=== PATIENT | male | born 2005 | race Caucasian/White ===

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

== ENCOUNTER 2025-03-18 09:48 | Emergency (ER) | payer OTHER, BC, SELFPAY ==
[2025-03-18 09:56] VITALS: BP 136/98; PULSE 83; RESP 16; TEMP 36.9; O2SAT 100
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
== END 2025-03-18 10:40 | disposition home or self-care (01) ==
PROVIDERS: Emergency Provider Nurse Practitioner Family
DX: S40.812A Abrasion of left upper arm, initial encounter (principal); S40.811A Abrasion of right upper arm, initial encounter; S60.511A Abrasion of right hand, initial encounter; S30.811A Abrasion of abdominal wall, initial encounter; S80.211A Abrasion, right knee, initial encounter; S20.412A Abrasion of left back wall of thorax, initial encounter; V28.49XA Other motorcycle driver injured in noncollision transport accident in traffic accident, initial encounter; F17.290 Nicotine dependence, other tobacco product, uncomplicated
CPT/HCPCS: 99213; G0463

== ENCOUNTER 2025-06-03 15:40 | Emergency (ER) | payer OTHER, BC, SELFPAY ==
--- NOTE | ~2025-06-03 | XR_ITS ---
EXAMINATION: XR wrist RT min 3V DATE: 06/03/2025 15:59 INDICATION: Right wrist injury post fall TECHNIQUE: Posteroanterior, ulnar deviation, oblique, and lateral views of the right wrist were obtained. COMPARISON: none FINDINGS: Alignment is normal. No fracture. Joint spaces are normal. Small round ossicle near the tip the ulnar styloid process which could represent an unfused accessory apophyseal center or sequela of old trauma. Soft tissues are unremarkable. IMPRESSION: 1. No acute osseous abnormality. Reviewed, dictated and finalized at location A.
[2025-06-03 15:43] VITALS: BP 143/79; PULSE 56; RESP 20; TEMP 36.8; O2SAT 100
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
--- OUTSIDE RECORDS SUMMARY | 2025-06-03 17:34 | XMS_ITS | Data Portability ---
Author Organization [facility] Address [address] [place] [address] Assessment No assessment recorded. Plan of Treatment Reminders Order Date Submit Date Provider Last Modified By Organization Details Last Modified Time Details Appointments None recorded. Lab SARS CoV 2 RNA (COVID-19), QL, environmental program manager-PCR, respiratory specimen - [place] @ 1pm 2019 [address] [facility] ([facility]), [address] [place], [address], 0 18:26:11 Referral None recorded. Procedures None recorded. Surgeries None recorded. Imaging None recorded. Medication Orders None recorded. Patient TargetsNo targets recorded. Patient Instructions Encounter Date Encounter Id Patient Instructions Last Modified By Organization Details Last Modified Time 04/14/2020 [id number] Reviewed the following recommendations: -Stay home and separate from others as much as possible. -Monitor your symptoms and seek medical attention for trouble breathing, persistent chest pain, confusion, or bluish lips or face. -Wear a mask if you must be around other people. -Wash your hands often for 20 seconds with soap and water and clean high-touch surfaces daily -You may discontinue home isolation if your symptoms are improving, it has been 10 days since symptoms started, and you have been fever free for at least 3 days. [email or web address] Not available 04/14/2020 12:48:32 Reason for Referral None Reported. Results Created Date Observation Date Name Description Value Unit Range Abnormal Flag Note LastModifiedBy Organization Detail LastModifiedTime 04/14/20 20 04/14/2020 SARS CoV 2 RNA (COVI D-19) , QL, environmental program manager-P CR, respi rator y speci men sars - cov - 2 PCR NEGATI VE mL Not Available [facility] (Lab) [address], [place], [address], 04/15/2020 18:26:11 04/14/20 20 04/14/2020 SARS CoV 2 RNA (COVI D-19) , QL, environmental program manager-P CR, respi rator y speci men covidcom1 COMME NTS: This assay is desig quiana to detec t the RdRp and N genes of SARS- CoV-2 using nucle ic acid ampli ficat ion. A negat [place] resul t does not precl ude the possi bilit y of 2019- nCoV infec tion since the adequ acy of sampl e colle ction and/o r low viral burde n may resul t in the prese nce of viral nucle ic acids level s below the rasheeda tical sensi tivit y of this test metho d. Not Available [facility] (Lab) [address], [place], [address], 04/15/2020 18:26:11 04/14/20 20 04/14/2020 SARS CoV 2 RNA (COVI D-19) , QL, environmental program manager-P CR, respi rator y speci men covidcom2 Posit [place] resul ts are indic ative of the prese nce of SARS- CoV-2 RNA and do not rule out bacte rial infec tion or co-in fecti on with other virus es. Not Available [facility] (Lab) [address], [place], [address], 04/15/2020 18:26:11 04/14/20 20 04/14/2020 SARS CoV 2 RNA (COVI D-19) , QL, environmental program manager-P CR, respi rator y speci men covidcom3 Test resul ts shoul d be used along with other clini attila obser vatio ns, patie nt histo ry, epide miolo gical infor matio n and labor atory data in kiera polanco the diagn osis. Not Available [facility] (Lab) [address], [place], [address], 04/15/2020 18:26:11 04/14/20 20 04/14/2020 SARS CoV 2 RNA (COVI D-19) , QL, environmental program manager-P CR, respi rator y speci men covidcom4 This test has recei wei FDA Emerg ency Use Autho rizat ion and has been verif ied by [facility] [employer] . This test is only autho rized for the durat ion of the decla ratio n and the circu mstan danial that exist to justi fy the autho rizat ion of the emerg ency use of in vitro diagn ostic tests for the detec tion of SARS- CoV-2 virus and/o r diagn osis of COVID -19 infec tion under secti on 564 (b) (1) of the Act. 11 U.S.C . 360bb b-3 (b) (1), unles s the autho rizat ion is termi nated or revok ed soone r. Not Available [facility] (Lab) [address] [place], [address], 04/15/2020 18:26:11 04/14/20 20 04/14/2020 SARS CoV 2 RNA (COVI D-19) , QL, environmental program manager-P CR, respi rator y speci men covidcom5 [facility] [employer] is certi fied under CLIA- 88 as quali fied to perfo rm high compl exity testi ng. This testi ng was perfo rmed in the [facility] [place] [address] (CLIA Licen se #[id number], CAP #[id number], AU-ID #[id number]). Not Available [facility] (Lab) [address] [place], [address], 04/15/2020 18:26:11 04/14/20 20 04/14/2020 SARS CoV 2 RNA (COVI D-19) , QL, environmental program manager-P CR, respi rator y speci men covidcom6 Facts heet for healt hcare provi ders: https ://ww w.fda .gov/ media /1362 56/do wnloa d Facts heet for patie nts: https ://ww [employer] .gov/ media /1362 57/do wnloa d Not Available [facility] ([facility]) [address] [place], [address], 04/15/2020 18:26:11 Result Notes None recorded. Medical Equipment None Reported. Medications Name Sig Start Date Stop Date Status Note LastModified by Organization Details LastModified Time divalproex 250 mg tablet,delayed release active Not Available Not Available Not Available sertraline 100 mg tablet active Not Available Not Available Not Available methylprednisolone 4 mg tablets in a dose pack active Not Available Not Available No t Available Vitals None Recorded Social History None recorded. Functional Status None recorded. Mental Status None recorded. Family History Nothing Reported. Medical History No medical history recorded. Immunizations Vaccine Type Date Status Note Provider Nam e and Address Organization Details Recorded Time meningococcal conjugate quadrivalent, MenACWY-TT (MCV4) 3 completed RAVINDER [facility] 04/26/2023 19:12:21 Past Encounters Encounter ID Performer Location Encounter Start Date Encounter Closed Date Diagnosis/Indication Diagnosis SNOMED-CT Code Diagnosis ICD10 Code Diagnosis IMO Codes Diagnosis Note [id number] JOAQUÍN hWaley [address] [place] [address] 04/14/2020 11:54:20 04/15/2020 08:14:54 Suspected COVID-19 [id number] Z03.417 [id number] Frantz Melgar MD [facility] [address] [place] [address] 04/26/2023 11:36:43 05/03/2023 15:10:14 Active or passive immunization [id number] Z23 Health Concerns Section Related Observation LastModified by Organization Detai ls LastModified Time None Recorded Concern Status LastModified by Organization Details LastModified Time None Recorded Advance Directives Directive None Recorded Payers Insurance Date Sequence Insurance Name Policy Number Policy Chester Covered Member ID Chester Member ID Guarantor Name 11/15/2024 1 [facility] [id number] [facility] [id number] Emigdio Baig Notes Date Note Type Note Provider Name and Address Organization Details Recorded Time 04/14/2020 text/html COVID-19 Symptom s December 2019Reported by PatientUpper Respiratory SymptomsFor associated symptoms, patient reportsnausea. For covid-19 signs and symptoms, patient reportsvomiting or diarrhea same. COVID ScreeningReported by PatientHPIFor onset/duration of fever, patient reportsno fever. For associated symptoms, patient reportsno coughandno shortness of breath.ROS as noted in the HPI LATOYA JOHN NP Attn: Accounting,[address] [facility], [place], [address], [place] - [facility] 04/14/2020 12:49:04
== END 2025-06-03 16:44 | disposition home or self-care (01) ==
DX: S69.91XA Unspecified injury of right wrist, hand and finger(s), initial encounter (principal); W01.0XXA Fall on same level from slipping, tripping and stumbling without subsequent striking against object, initial encounter; F17.290 Nicotine dependence, other tobacco product, uncomplicated
CPT/HCPCS: 73110; 99213; G0463

== ENCOUNTER 2025-07-28 19:07 | Emergency (ER) | payer OTHER, BC, SELFPAY ==
--- NOTE | ~2025-07-28 | XR_ITS ---
EXAMINATION: XR chest 2V 07/28/2025 19:34 INDICATION: Left-sided chest pain PROCEDURE: 2 view chest COMPARISON: 04/29/2010 FINDINGS: The lungs are clear. The cardiomediastinal silhouette is within normal limits. There are no pleural effusions. There is no pneumothorax suspected. IMPRESSION: 1: NO ACUTE CARDIOPULMONARY DISEASE. Reviewed, dictated and finalized at location O. NOSTICS TECH
--- NOTE | 2025-07-28 19:10 | ED_ITS ---
HPI - Skin/Abscess/Foreign Bdy General Chief complaint: Skin/Abscess/Foreign Body Stated complaint: Chest Pain/Skin Sore Time Seen by Provider: 07/28/25 19:09 Source: patient Mode of arrival: ambulatory Limitations: no limitations History of Present Illness HPI narrative: Emigdio is a 19 year old male patient presenting to the clinic today with c/o chest pain and skin rash to the right foot. He reports sharp shooting chest pain started in the left side of the chest radiating into the back approximately 1.5 hours ago. States the pain is constant. Denies any injury. No history of spontaneous pneumo. Denies any URI symptoms or cough. Denies any shortness of breath. States the pain does worsen when taking a deep breath to 8/10 and 6/10 at rest. Has not taken anything for pain. Also wants to have his rash on his right dorsal foot looked out. He states that he first noticed it 2 months ago. Has tried some Aquaphor without relief. Denies any injury, itching, or pain. Related Data Home Medications ?Medication ?Instructions ?Recorded ?Confirmed ?Last Taken ?Type No Home Medications 07/28/25 07/28/25 U nknown History Allergies Allergy/AdvReac Type Severity Reaction Status Date / Time No Known Allergies Allergy Verified 07/28/25 19:17 Review of Systems Review of Systems: Pertinent positives per HPI. Patient denies any fever, chills, headache, visual changes, dizziness, cough, runny nose, sore throat, shortness of breath, palpitations, nausea, vomiting, diarrhea, constipation, abdominal pain, or any urinary issues. PMFSH Social History Social History Smoking status: Current every day smoker Tobacco type: e-cigarettes/vaping Alcohol intake: current Substance use type: does not use Living arrangements: with family Gender identity (if verbalized by the patient): Male Comments At the time of my signature, I reviewed and agree with the nursing past medical, surgical, social, and family history. There is no relevant family history pertinent to the patient complaint. Exam Narrative: General: Well-developed, well nourished, in no apparent distress Head: Normocephalic, atraumatic Eyes: Pupils equally round and reactive to light bilaterally, EOM intact, sclera and conjunctive clear, no discharge, lids normal Ears: TMs intact and clear, ear canals clear, no drainage, grossly hearing nor mal. Nose: Nares patent, no discharge, no inflammation, no sinus tenderness. Mouth: Oropharynx without lesions or masses, good dentition, MMM. Neck: Supple, trachea midline, no enlargement of anterior or posterior cervical nodes, no thyroid masses or goiter palpable. Chest wall: Even rise and fall of the chest wall, no bruising or swelling to the chest wall, no tenderness to palpation over the anterior chest wall Cardio: Regular rate and rhythm, s1 and s2 normal, no murmur appreciated. Resp: Clear to auscultation bilaterally anteriorly and posteriorly, no rhonchi, rales, wheezing or rubs Course Course Level of Care: Express Care Visit Vital Signs Vital signs: Vital Signs Temperature 36.8 C 07/28/25 19:14 Pulse Rate 91 07/28/25 19:14 Respiratory Rate 18 07/28/25 19:14 Blood Pressure 144/45 H 07/28/25 19:14 Pulse Oximetry 99 07/28/25 19:14 Oxygen Delivery Room Air 07/28/25 19:14 Temperature 36.8 C 07/28/25 19:14 Pulse Rate 91 07/28/25 19:14 Respiratory Rate 18 07/28/25 19:14 Blood Pressure 144/45 H 07/28/25 19:14 Pulse Oximetry 99 07/28/25 19:14 Oxygen Delivery Room Air 07/28/25 19:14 [facility] Narrative Medical decision making narrative: At the time of visit patient is resting comfortably on the exam table. Patient appears to be nontoxic. c/o chest pain and skin rash to the right foot. He reports sharp shooting chest pain started in the left side of the chest radiating into the back approximately 1.5 hours ago. States the pain is constant. Denies any injury. No history of spontaneous pneumo. Denies any URI symptoms or cough. Denies any shortness of breath. States the pain does worsen when taking a deep breath to 8/10 and 6/10 at rest. Has not taken anything for pain. Also wants to have his rash on his right dorsal foot looked out. He states that he first noticed it 2 months ago. Has tried some Aquaphor without relief. Denies any injury, itching, or pain. On exam patient has EKG and chest x-ray was ordered. EKG: EKG shows sinus rhythm with a heart rate of 83 beats per minute without ST elevation, depression, T-wave inversion. No comparison EKG available Plan: I suspect patient has pleuritic chest pain and a atypical nevi to the right dorsal foot. Recommend follow-up with PCP/dermatology in regards to the nevi. Recommend taking 600 mg to 800 mg of ibuprofen 3 times daily x1 week for pleuritic chest pain. Patient's Wells criteria for PE scored 0 points a low risk group for chance of PE. Supportive measures were discussed with the patient and they voiced understanding discharge instructions and agrees to treatment plan. Return precautions reviewed Well criteria for PE: 0.0?points Low risk group: 1.3% chance of PE in an ED population. Another study assigned scores <= as ?PE Unlikely? and had a 3% incidence of PE. Differential Diagnosis Differential Diagnosis: Differential diagnostic considerations for upper respiratory infection include upper respiratory infection, croup, otitis media, sinusitis, viral infection, bronchitis, influenza, pharyngitis, strep, uvulitis. Imaging Data Radiologist's impression: ITS Impressions Chest X-Ray 07/28/25 19:45 IMPRESSION: 1: NO ACUTE CARDIOPULMONARY DISEASE. ECG Data EKG #1: Attestation: I personally reviewed and interpreted this ECG as follows: ECG completion date: 07/28/25 ECG completion time: 19:25 Prior ECG tracings: not available for review Interpretation: EKG shows sinus rhythm with a heart rate of 83 beats per minute without ST elevation, depression, T-wave inversion. OR interval is 137 milliseconds, QRS durations 88 milliseconds, QT-QTC is 327-367 milliseconds, P-R-T axis is 61 55 31 Discharge Plan Discharge Clinical Impression: Atypical nevus of right foot, Chest pain, pleuritic Patient Disposition: Home Condition: Stable Instructions: Antibiotic Form, Pleurisy (ED) Additional Instructions: EKG is reassuring in the clinic today Chest x-rays negative for any acute cardiopulmonary process. No sign of pneumothorax. I suspect you likely have pleuritic chest pain. Recommend taking ibuprofen 600 mg-800 mg every 8 hours as needed for pain Increase fluids and stay well hydrated Stop smoking Follow-up with your primary care doctor in 5-7 days if symptoms persist. May need dermatological referral for nevi Patient Language: Khmer Prescriptions: No Action No Home Medications Follow-up/Referrals: PHYSICIAN,BLACK OFF WORKER [Primary Care Provider, Internal Medicine] Time of Disposition: 19:51 Quality NIHSS Nursing Documentation ED NIHSS nursing documentation: reviewed/agree
--- OUTSIDE RECORDS SUMMARY | 2025-07-28 19:11 | XMS_ITS | Data Portability ---
[facility] [address] [place] [address] Assessment No assessment recorded. Plan of Treatment Reminders Order Date Submit Date Provider Last Modified By Organization Details Last Modified Time Details Appointments None recorded. Lab SARS CoV 2 RNA (COVID-19), QL, hitcher-PCR, respiratory specimen - muir @ 1pm 2019 020 [facility] ([facility]), [address] [place], [address], 0 18:26:11 Referral None recorded. Procedures None recorded. Surgeries None recorded. Imaging None recorded. Medication Orders None recorded. Patient TargetsNo targets recorded. Patient Instructions Encounter Date Encounter Id Patient Instructions Last Modified By Organization Details Last Modified Time 04/14/2020 [id number] Reviewed the following recommendations: -Stay home and [...] CoV 2 RNA (COVI D-19) , QL, hitcher-P CR, respi rator y speci men sars - cov - 2 PCR NEGATI VE mL Not Available [facility] (Lab) [address], [place], [address], 04/15/2020 18:26:11 04/14/20 20 04/14/2020 SARS CoV 2 RNA (COVI D-19) , QL, hitcher-P CR, respi rator y speci men covidcom1 [...] of this test metho d. Not Available [facility] (Lab) [address], [place], [address], 04/15/2020 18:26:11 04/14/20 20 04/14/2020 SARS CoV 2 RNA (COVI D-19) , QL, hitcher-P CR, respi rator y speci men covidcom2 Posit [place] resul ts are indic ative of the prese nce of SARS- CoV-2 RNA and do not rule out bacte rial infec tion or co-in fecti on with other virus es. Not Available [facility] (Lab) [address], [place], [address], 04/15/2020 18:26:11 04/14/20 20 04/14/2020 SARS CoV 2 RNA (COVI D-19) , QL, hitcher-P CR, respi rator y speci men covidcom3 Test resul ts shoul d be used along with other clini attila obser vatio ns, patie nt histo ry, epide miolo gical infor matio n and labor atory data in kiera polanco the diagn osis. Not Available [facility] (Lab) [address], [place], [address], 04/15/2020 18:26:11 04/14/20 20 04/14/2020 SARS CoV 2 RNA (COVI D-19) , QL, hitcher-P CR, respi rator y speci men covidcom4 This test has recei wei FDA Emerg ency Use Autho rizat ion and has been verif ied by [facility] . This test is only autho rized [...] or revok ed soone r. Not Available [facility] (Lab) [address] [place], [address], 04/15/2020 18:26:11 04/14/20 20 04/14/2020 SARS CoV 2 RNA (COVI D-19) , QL, hitcher-P CR, respi rator y speci men covidcom5 [facility] is certi fied under CLIA- 88 as quali fied to perfo rm high compl exity testi ng. This testi ng was perfo rmed in the [facility] [employer] [place] [address] (CLIA Licen se #[id number] [id number] 5, CAP #[id number], AU-ID #[id number]). Not Available [facility] (Lab) [address] [place], [address], 04/15/2020 18:26:11 04/14/20 20 04/14/2020 SARS CoV 2 RNA (COVI D-19) , QL, hitcher-P CR, respi rator y speci men covidcom6 Facts heet for healt hcare provi ders: https ://ww w.fda .gov/ media /1362 56/do wnloa d Facts heet for patie nts: https ://ww APerfectShirt.com.Softfront .gov/ media /1362 57/do wnloa d Not Available [facility] ([facility]) [address] [place], [address], 04/15/2020 18:26:11 Result Notes None recorded. Medical [...] quadrivalent, MenACWY-TT (MCV4) 3 completed RAVINDER [facility] 04/26/2023 19:12:21 Past Encounters Encounter ID Performer Location Encounter Start Date Encounter Closed Date Diagnosis/Indication Diagnosis SNOMED-CT Code Diagnosis ICD10 Code Diagnosis IMO Codes Diagnosis Note [id number] JOAQUÍN Whaley [address] [place] [address] 04/14/2020 11:54:20 04/15/2020 08:14:54 Suspected COVID-19 848815365 Z03.098 [id number] Frantz Melgar MD [facility] [address] [place] [address] 04/26/2023 11:36:43 05/03/2023 15:10:14 Active or passive immunization [id number] Z23 Health Concerns Section Related Observation LastModified by Organization Detai ls LastModified Time None Recorded Concern Status LastModified by Organization Details LastModified Time None Recorded Advance Directives Directive None Recorded Payers Insurance Date Sequence Insurance Name Policy Number Policy Chester Covered Member ID Chester Member ID Guarantor Name 11/15/2024 1 [facility] [id number] [facility] [id number] Emigdio Baig Notes Date Note Type Note [...] HPI LATOYA JOHN NP Attn: Accounting,[address] [facility], [place], [address], [place] [facility] 04/14/2020 12:49:04
[2025-07-28 19:14] VITALS: BP 144/45; PULSE 91; RESP 18; TEMP 36.8; O2SAT 99
--- NOTE | 2025-07-28 19:21 | ECG_ITS ---
Test Date: 2025-07-28 19:25:09 Measurements Intervals [place] Rate: 83 P: 61 NC: 137 QRS: 55 QRSD: 88 T: 31 QT: 327 QTc: 385 Interpretive Statements SINUS RHYTHM POSSIBLE LEFT ATRIAL ENLARGEMENT BORDERLINE ST-T WAVE ABNORMALITY- INFERIOR LEADS BORDERLINE ECG No previous ECG available for comparison Electronically Signed On 07-28-2025 20:11:37 MEDICAL IMAGING TECH by Carlos Eduardo Garcia D.O.
== END 2025-07-28 19:58 | disposition home or self-care (01) ==
PROVIDERS: Emergency Provider Nurse Practitioner Family
DX: D22.71 Melanocytic nevi of right lower limb, including hip (principal); R07.81 Pleurodynia
CPT/HCPCS: 71046; 93005; 99213; G0463